=== PATIENT | female | born 1955 | race Caucasian/White ===

== ENCOUNTER 2020-01-01 18:57 | Emergency (ER) | payer OTHER ==
[~2020-01-01] VITALS: Ht 165.1 cm; Wt 63.0 kg
== END 2020-01-01 20:14 ==
LOC: ED 18:57
DX: Z48.01 Encounter for change or removal of surgical wound dressing (principal)

== ENCOUNTER 2020-01-24 18:05 | Inpatient (IN) | payer OTHER, MEDICAID ==
[~2020-01-24] VITALS: Ht 165.1 cm; Wt 68.1 kg
[2020-01-24 18:14] VITALS: BP 117/58
[2020-01-24 19:17] LABS: HEMATOCRIT 36.7 % (37.0-47.0); MEAN CORPUSCULAR HGB 25.2 pg (27.0-31.0); MEAN CORPUSCULAR HGB CONC 31.1 g/dl (33.0-37.0); MEAN PLATELET VOLUME 8.5 fl (9.6-12.3); PLATELET COUNT AUTOMATED 695 10*3/uL (130-400); RED BLOOD COUNT 4.53 10*6/uL (4.10-5.10); RED CELL DISTRI WIDTH 16.2 % (0-14.5)
[2020-01-24 19:41] LABS: PLATELET SUFFICIENCY HIGH (NORMAL); TOTAL CELLS COUNTED 100 #CELLS
[2020-01-24 19:42] LABS: VACUOLATION OF NEUTROPHILS MODERATE
[2020-01-24 19:43] LABS: BILIRUBIN Negative (Negative); BLOOD 3+ (Negative); CLARITY Turbid (Clear); COLOR Dark Yellow (Yellow); GLUCOSE Negative (Negative); KETONE 1+ (Negative); LEUKO ESTERASE 3+ (Negative); NITRITE Negative (Negative); SPECIFIC GRAVITY 1.015 (1.001-1.030); UROBILINOGEN 0.2 E.U./dl (0.0-1.0)
[2020-01-24 19:43] LABS: BURR CELLS FEW; POLYCHROMASIA SLIGHT
[2020-01-24 19:44] LABS: TOXIC GRANULATION SLIGHT
[2020-01-24 19:46] LABS: WHITE BLOOD COUNT 43.1 10*3/uL (4.8-10.8)
[2020-01-24 19:51] LABS: BACTERIA 3+; EPITHELIAL CELLS 0-2; WBC TNTC wbc/hpf (0-5)
[2020-01-24 20:00] VITALS: BP 133/73
[2020-01-24 20:18] LABS: ALBUMIN 1.9 gm/dl (3.1-4.5); ALKALINE PHOSPHATASE 243 U/L (45-117); BUN 29 mg/dl (7-24); CHLORIDE 96 mmol/L (98-107); CREATININE 1.38 mg/dL (0.55-1.02); LIPASE 23 U/L (73-393); SGOT/AST 74 IU/L (3-35); SGPT/ALT 32 U/L (12-78); SODIUM 127 mmol/L (136-145); TOTAL PROTEIN 6.9 gm/dL (6.4-8.2)
[2020-01-24 20:27] LABS: TROPONIN I < 0.015 ng/ml (<0.045)
[2020-01-24 23:00] VITALS: BP 134/71
[2020-01-25] VITALS: BP 133/73
[2020-01-25 00:15] VITALS: BP 126/70
[2020-01-25] MEDS ORDERED: NOVOLOG10 ML SC (02:18)
[2020-01-25] MEDS ORDERED: OXYCODONE HCL10 M1 PO (02:18)
[2020-01-25] MEDS ORDERED: POTASSIUM CHLO20 ME3 PO (02:19)
[2020-01-25] MEDS ORDERED: SENNA LAX8.6 M1 PO (02:20)
[2020-01-25] MEDS ORDERED: ZANAFLEX4 M2 PO (02:21)
[2020-01-25] MEDS ORDERED: GOOD SENSE PAI650 M1 PO (02:22)
[2020-01-25] MEDS ORDERED: VITAMIN C500 M4 PO (02:23)
[2020-01-25] MEDS ORDERED: ZOFRAN4 MG PO (02:25)
[2020-01-25] MEDS ORDERED: THERA-D100 MCG PO (02:25)
[2020-01-25] MEDS ORDERED: DULCOLAX10 M1 R (02:27)
[2020-01-25] MEDS ORDERED: DICYCLOMINE HCL20 MG PO (02:28)
[2020-01-25] MEDS ORDERED: DULCOLAX STOOL100 M1 PO (02:29)
[2020-01-25] MEDS ORDERED: FLONASE ALLERG9.9 ML NAS (02:29)
[2020-01-25] MEDS ORDERED: LAMICTAL100 MG PO (02:30)
[2020-01-25] MEDS ORDERED: FLORASTOR250 MG PO (02:30)
[2020-01-25] MEDS ORDERED: LIDODERM1 EACH T (02:31)
[2020-01-25] MEDS ORDERED: LIPITOR20 MG PO (02:42)
[2020-01-25] MEDS ORDERED: MAG-OXIDE200 MG PO (02:43)
[2020-01-25] MEDS ORDERED: MELATONIN5 M1 PO (02:44)
[2020-01-25] MEDS ORDERED: MIRALAX POWDER17 G1 PO (02:46)
[2020-01-25] MEDS ORDERED: MILK OF MA400 MG/52 PO (02:46)
[2020-01-25] MEDS ORDERED: DAILY VALUE1 EACH PO (02:47)
[2020-01-25] MEDS ORDERED: NEURONTIN300 MG PO (02:48)
[2020-01-25] MEDS ORDERED: AMBIEN5 MG PO (02:48)
[2020-01-25] MEDS ORDERED: ARTIFICIAL TEA1 EACH OP (02:49)
[2020-01-25] MEDS ORDERED: ASPIRIN ADULT L81 M1 PO (02:50)
[2020-01-25] MEDS ORDERED: BIOFREEZE118 ML T (02:50)
[2020-01-25 06:56] LABS: HEMATOCRIT 26.5 % (37.0-47.0); MEAN CORPUSCULAR HGB 25.3 pg (27.0-31.0); MEAN CORPUSCULAR HGB CONC 33.2 g/dl (33.0-37.0); MEAN PLATELET VOLUME 10.1 fl (9.6-12.3); PLATELET COUNT AUTOMATED 567 10*3/uL (130-400); RED BLOOD COUNT 3.48 10*6/uL (4.10-5.10)
[2020-01-25 07:02] LABS: ALBUMIN 1.6 gm/dl (3.1-4.5); ALKALINE PHOSPHATASE 193 U/L (45-117); BUN 21 mg/dl (7-24); CHLORIDE 99 mmol/L (98-107); CREATININE 0.51 mg/dL (0.55-1.02); SGOT/AST 63 IU/L (3-35); SGPT/ALT 28 U/L (12-78); TOTAL PROTEIN 5.7 gm/dL (6.4-8.2)
[2020-01-25 07:14] LABS: MEAN CELL VOLUME 76.1 fl (81.0-99.0)
[2020-01-25 07:17] LABS: MICROCYTOSIS SLIGHT; PLATELET SUFFICIENCY HIGH (NORMAL); TOTAL CELLS COUNTED 100 #CELLS
[2020-01-25 07:19] LABS: SODIUM 131 mmol/L (136-145)
[2020-01-25 07:20] LABS: WHITE BLOOD COUNT 43.2 10*3/uL (4.8-10.8)
[2020-01-25 07:23] LABS: POTASSIUM 4.1 mmol/L (3.5-5.1)
[2020-01-25 12:00] VITALS: BP 116/67
[2020-01-25 15:00] LABS: ALBUMIN 1.6 gm/dl (3.1-4.5); BUN 20 mg/dl (7-24); CHLORIDE 99 mmol/L (98-107); CREATININE 0.54 mg/dL (0.55-1.02); POTASSIUM 4.1 mmol/L (3.5-5.1); SODIUM 134 mmol/L (136-145)
[2020-01-25 16:00] VITALS: BP 121/60; BP 122/84
[2020-01-25 20:00] VITALS: BP 122/66
[2020-01-26] VITALS: BP 109/84
[2020-01-26 06:00] LABS: BUN 20 mg/dl (7-24); CHLORIDE 103 mmol/L (98-107); CREATININE 0.44 mg/dL (0.55-1.02); POTASSIUM 3.7 mmol/L (3.5-5.1); SODIUM 135 mmol/L (136-145)
[2020-01-26 06:53] LABS: ACT PARTIAL THROMBO TIME 36.9 SECONDS (20.0-32.1); INTERNATIONAL NORM RATIO 1.1 (2.0-3.5)
[2020-01-26 06:58] LABS: HEMATOCRIT 28.4 % (37.0-47.0); MEAN CORPUSCULAR HGB 25.2 pg (27.0-31.0); MEAN CORPUSCULAR HGB CONC 31.3 g/dl (33.0-37.0); MEAN PLATELET VOLUME 9.1 fl (9.6-12.3); PLATELET COUNT AUTOMATED 686 10*3/uL (130-400); RED BLOOD COUNT 3.53 10*6/uL (4.10-5.10); RED CELL DISTRI WIDTH 16.3 % (0-14.5); WHITE BLOOD COUNT 23.5 10*3/uL (4.8-10.8)
[2020-01-26 06:59] LABS: MEAN CELL VOLUME 80.5 fl (81.0-99.0)
[2020-01-26 07:50] LABS: BASOPHILS 1 % (0-1); TOTAL CELLS COUNTED 100 #CELLS
[2020-01-26 07:51] LABS: PLATELET SUFFICIENCY HIGH (NORMAL)
[2020-01-26 08:00] VITALS: BP 143/68
[2020-01-26 12:00] VITALS: BP 127/86; BP 156/82
[2020-01-26 16:00] VITALS: BP 139/87
[2020-01-26 20:00] VITALS: BP 124/62
[2020-01-27] VITALS: BP 134/71
[2020-01-27 06:23] LABS: HEMATOCRIT 34.6 % (37.0-47.0); MEAN CELL VOLUME 80.7 fl (81.0-99.0); MEAN CORPUSCULAR HGB 24.9 pg (27.0-31.0); MEAN CORPUSCULAR HGB CONC 30.9 g/dl (33.0-37.0); MEAN PLATELET VOLUME 8.5 fl (9.6-12.3); PLATELET COUNT AUTOMATED 731 10*3/uL (130-400); RED BLOOD COUNT 4.29 10*6/uL (4.10-5.10); RED CELL DISTRI WIDTH 16.2 % (0-14.5); WHITE BLOOD COUNT 20.3 10*3/uL (4.8-10.8)
[2020-01-27 06:45] LABS: ALBUMIN 1.6 gm/dl (3.1-4.5); ALKALINE PHOSPHATASE 183 U/L (45-117); BUN 18 mg/dl (7-24); CHLORIDE 104 mmol/L (98-107); CREATININE 0.57 mg/dL (0.55-1.02); SGOT/AST 23 IU/L (3-35); SGPT/ALT 18 U/L (12-78); SODIUM 133 mmol/L (136-145); TOTAL PROTEIN 5.5 gm/dL (6.4-8.2)
[2020-01-27 07:14] LABS: OVALOCYTES FEW; PLATELET SUFFICIENCY HIGH (NORMAL); TOTAL CELLS COUNTED 100 #CELLS; TOXIC GRANULATION SLIGHT
[2020-01-27 07:15] LABS: MICROCYTOSIS SLIGHT; VACUOLATION OF NEUTROPHILS SLIGHT
[2020-01-27 08:00] VITALS: BP 164/87
[2020-01-27 12:00] VITALS: BP 125/90
== END 2020-01-27 14:55 | disposition short-term general hospital (02) | DRG 871 ==
LOC: ED 18:05 → EDHOLD 23:20 → 5E 23:20
PROVIDERS: Internal Medicine; Internal Medicine Nephrology; Nurse Practitioner Family; Radiology Diagnostic Radiology; Student in an Organized Health Care Education/Training Program; ADMIT Emergency Medicine; ATTEND Emergency Medicine
PROC: 0T9B7ZZ Drainage of Bladder, Via Natural or Artificial Opening (ICD-10-PCS; principal; 2020-01-26)
DX: A41.9 Sepsis, unspecified organism (principal); N17.0 Acute kidney failure with tubular necrosis; K65.1 Peritoneal abscess; E87.1 Hypo-osmolality and hyponatremia; G82.20 Paraplegia, unspecified; L97.429 Non-pressure chronic ulcer of left heel and midfoot with unspecified severity; L97.419 Non-pressure chronic ulcer of right heel and midfoot with unspecified severity; N13.6 Pyonephrosis; R65.20 Severe sepsis without septic shock; E87.5 Hyperkalemia; J44.9 Chronic obstructive pulmonary disease, unspecified; E78.5 Hyperlipidemia, unspecified; K21.00 Gastro-esophageal reflux disease with esophagitis, without bleeding; B18.2 Chronic viral hepatitis C; B96.4 Proteus (mirabilis) (morganii) as the cause of diseases classified elsewhere; R68.84 Jaw pain; M19.071 Primary osteoarthritis, right ankle and foot; E11.621 Type 2 diabetes mellitus with foot ulcer; F32.9 Major depressive disorder, single episode, unspecified; R62.7 Adult failure to thrive; Z20.828 Contact with and (suspected) exposure to other viral communicable diseases; G25.81 Restless legs syndrome; L98.8 Other specified disorders of the skin and subcutaneous tissue; M19.072 Primary osteoarthritis, left ankle and foot; S31.000A Unspecified open wound of lower back and pelvis without penetration into retroperitoneum, initial encounter; S31.819A Unspecified open wound of right buttock, initial encounter; X58.XXXA Exposure to other specified factors, initial encounter; S90.931A Unspecified superficial injury of right great toe, initial encounter; Y93.89 Activity, other specified; Y92.89 Other specified places as the place of occurrence of the external cause; Z79.82 Long term (current) use of aspirin; Y99.8 Other external cause status; Z79.899 Other long term (current) drug therapy; Z93.3 Colostomy status; Z68.24 Body mass index [BMI] 24.0-24.9, adult

== ENCOUNTER 2020-02-16 12:31 | Emergency (ER) | payer OTHER, MEDICAID ==
[~2020-02-16] VITALS: Ht 165.1 cm; Wt 54.4 kg
[~2020-02-16 12:31] MED LIST: AMBIEN5 MG PO; ARTIFICIAL TEA1 EACH OP; ASPIRIN ADULT L81 M1 PO; BIOFREEZE118 ML T; DAILY VALUE1 EACH PO; DICYCLOMINE HCL20 MG PO; DULCOLAX STOOL100 M1 PO; DULCOLAX10 M1 R; FLONASE ALLERG9.9 ML NAS; FLORASTOR250 MG PO; GOOD SENSE PAI650 M1 PO; LAMICTAL100 MG PO; LIDODERM1 EACH T; LIPITOR20 MG PO; MAG-OXIDE200 MG PO; MELATONIN5 M1 PO; MILK OF MA400 MG/52 PO; MIRALAX POWDER17 G1 PO; NEURONTIN300 MG PO; NOVOLOG10 ML SC; OXYCODONE HCL10 M1 PO; POTASSIUM CHLO20 ME3 PO; SENNA LAX8.6 M1 PO; THERA-D100 MCG PO; VITAMIN C500 M4 PO; ZANAFLEX4 M2 PO; ZOFRAN4 MG PO
[2020-02-16 14:53] LABS: HEMATOCRIT 31.1 % (37.0-47.0); MEAN CORPUSCULAR HGB 25.5 pg (27.0-31.0); MEAN CORPUSCULAR HGB CONC 31.5 g/dl (33.0-37.0); PLATELET COUNT AUTOMATED 480 10*3/uL (130-400); RED BLOOD COUNT 3.84 10*6/uL (4.10-5.10); RED CELL DISTRI WIDTH 19.2 % (0-14.5)
[2020-02-16 14:57] LABS: WHITE BLOOD COUNT 49.3 10*3/uL (4.8-10.8)
[2020-02-16 15:06] LABS: ALBUMIN 1.7 gm/dl (3.1-4.5); ALKALINE PHOSPHATASE 146 U/L (45-117); BUN 24 mg/dl (7-24); CHLORIDE 95 mmol/L (98-107); CREATININE 0.62 mg/dL (0.55-1.02); POTASSIUM 3.9 mmol/L (3.5-5.1); SGOT/AST 9 IU/L (3-35); SGPT/ALT 7 U/L (12-78); SODIUM 132 mmol/L (136-145); TOTAL PROTEIN 5.4 gm/dL (6.4-8.2)
[2020-02-16 15:15] LABS: TOTAL CELLS COUNTED 100 #CELLS
[2020-02-16 15:16] LABS: PLATELET SUFFICIENCY HIGH (NORMAL)
[2020-02-16 15:25] LABS: BILIRUBIN Negative (Negative); BLOOD 3+ (Negative); CLARITY Turbid (Clear); COLOR Orange (Yellow); GLUCOSE Negative (Negative); KETONE Trace (Negative); LEUKO ESTERASE 3+ (Negative); NITRITE Negative (Negative); SPECIFIC GRAVITY 1.025 (1.001-1.030)
[2020-02-16 15:39] LABS: BACTERIA 4+; WBC TNTC wbc/hpf (0-5)
== END 2020-02-16 19:00 | disposition short-term general hospital (02) ==
LOC: ED 12:31
PROVIDERS: Nurse Practitioner
DX: L02.211 Cutaneous abscess of abdominal wall (principal); G82.20 Paraplegia, unspecified; L98.8 Other specified disorders of the skin and subcutaneous tissue; Z79.4 Long term (current) use of insulin; Z79.899 Other long term (current) drug therapy; Z79.2 Long term (current) use of antibiotics